=== PATIENT | male | born 1955 | race Caucasian/White ===

== ENCOUNTER 2018-11-29 15:40 | Observation (INO) | payer OTHER ==
[~2018-11-29] VITALS: Ht 182.9 cm; Wt 100.7 kg
[2018-11-29] MEDS ORDERED: TESTOSTERO200 MG/1 M (16:04)
[2018-11-29] MEDS ORDERED: ENOXAPARIN SODIUM INJ 100 MG/ML SYR SC ONE (16:14)
[2018-11-29] MEDS ORDERED: FAMOTIDINE 20 MG/2 ML VIAL IV STA (16:14)
[2018-11-29] MEDS ORDERED: ASPIRIN 81 MG CHEW TAB PO ONE (16:14)
[2018-11-29] MEDS ORDERED: METOPROLOL TARTRATE 50 MG TAB PO ONE (16:14)
[2018-11-29] MEDS ORDERED: METOPROLOL TARTRATE INJ 1 MG/ML VIAL IV ONE (16:15)
[2018-11-29] MEDS ORDERED: ONDANSETRON HCL INJ 2MG/ML 2ML 2 MG/ML VIAL IV PRN (16:30)
[2018-11-29] MEDS ORDERED: MORPHINE SULFATE 2 MG/ML SYR 1ML IV PRN (16:30)
[2018-11-29] MEDS ORDERED: METOPROLOL TARTRATE 25 MG TAB PO SCH (16:30)
[2018-11-29 16:31] LABS: BASOPHILS # (AUTO) 0.1 (0.0-0.1); EOSINOPHILS # (AUTO) 0.2 (0.0-0.4); EOSINOPHILS % 2.9 % (0.0-6.0); HEMATOCRIT 51.3 % (38.2-49.6); HEMOGLOBIN 17.8 g/dL (14.0-18.0); LYMPHOCYTES # (AUTO) 2.2 (1.0-3.2); LYMPHOCYTES % 28.5 % (18.0-39.1); MEAN CORPUSCULAR HGB CONC 34.7 g/dL (31-35); MEAN CORPUSCULAR VOLUME 92.1 fL (81-99); MONOCYTES # (AUTO) 0.6 (0.2-0.8); MONOCYTES % 8.2 % (4.4-11.3); NEUTROPHILS # (AUTO) 4.5 (2.1-6.9); NEUTROPHILS % 58.9 % (38.7-80.0); PLATELET COUNT 159 x10e3/uL (140-360); RED BLOOD COUNT 5.57 x10e6/uL (4.3-5.7); RED CELL DISTRIBUTION WIDTH 12.7 % (11.7-14.4)
[2018-11-29 16:37] LABS: BILIRUBIN,URINE NEGATIVE (NEGATIVE); CLARITY,URINE SL CLOUDY (CLEAR); COLOR,URINE YELLOW (YELLOW); KETONES,URINE TRACE (NEGATIVE); LEUKOCYTE ESTERASE ,URINE NEGATIVE (NEGATIVE); NITRITE,URINE NEGATIVE (NEGATIVE); PROTEIN,URINE DIPSTICK NEGATIVE (NEGATIVE); URINE UROBILINOGEN 0.2 mg/dL (0.2 - 1)
[2018-11-29 16:42] LABS: INR 0.92; PROTHROMBIN TIME 12.8 seconds (11.9-14.5)
[2018-11-29 16:43] LABS: PARTIAL THROMBOPLASTIN TIME 30.3 seconds (23.8-35.5)
[2018-11-29 16:50] LABS: ALANINE AMINOTRANSFERASE 36 IU/L (0-55); ALBUMIN 4.3 g/dL (3.5-5.0); ALBUMIN/GLOBULIN RATIO 1.5 (0.8-2.0); ALKALINE PHOSPHATASE 68 IU/L (40-150); BLOOD UREA NITROGEN 14 mg/dL (7-26); BUN/CREATININE RATIO 16 (6-25); CALCIUM 9.6 mg/dL (8.4-10.2); CARBON DIOXIDE 23 mmol/L (22-29); CHLORIDE 103 mmol/L (98-107); CREATINE KINASE 147 IU/L (30-200); CREATININE, SERUM 0.89 mg/dL (0.72-1.25); EST GLOMERULAR FILTRATION RATE > 60 ML/MIN (60-); GLUCOSE 89 mg/dL (74-118); SODIUM 139 mmol/L (136-145)
[2018-11-29 16:57] LABS: BACTERIA,URINE FEW /HPF; MUCUS,URINE MANY (RARE)
[2018-11-29 17:07] LABS: MAGNESIUM 2.1 MG/DL (1.3-2.1)
[2018-11-29 17:27] LABS: THYROID STIMULATING HORMONE 0.43 uIU/mL (0.350-4.940)
--- NOTE | 2018-11-29 17:28 | Diagnostic Imaging Report ---
EXAMINATION: CHEST SINGLE (NOT PORTABLE) INDICATION: ^chest pain ^[id number] ^1711 COMPARISON: None FINDINGS: AP view TUBES and LINES: None. LUNGS: Lungs are well inflated. Lungs are clear. There is no evidence of pneumonia or pulmonary edema. PLEURA: No pleural effusion or pneumothorax. HEART AND MEDIASTINUM: The cardiac silhouette is prominent. BONES AND SOFT TISSUES: No acute osseous lesion. Soft tissues are unremarkable. UPPER ABDOMEN: No free air under the diaphragm. IMPRESSION: Prominent cardiac silhouette without pulmonary decompensation. Signed by: Dr. Sheridan Shoemaker M.D. on 11/29/2018 5:25 PM
--- NOTE | 2018-11-29 20:50 | History and Physical ---
CHIEF COMPLAINT: "I've had chest pain off and on for the last couple of weeks." HISTORY OF PRESENT ILLNESS: A 63-year-old white man, who presents to [facility] with 2-week history of intermittent retrosternal chest pressure that at times radiates to his interscapular area. He is currently chest pain free. A 12-lead EKG done in the emergency room revealed atrial fibrillation with rapid ventricular rate. The patient was given one dose of intravenous metoprolol that did slow his heart rate down. The patient's initial cardiac enzymes were negative. The patient's B type natriuretic peptide level was slightly elevated with level 162. The patient's BUN and creatinine are 14 and 0.89 respectively. The patient's TSH level is 0.430. The patient states he does drink alcohol socially. He is also on testosterone replacement therapy for hypogonadism. He has had a chest x-ray done in the emergency room revealed prominent cardiac silhouette without pulmonary decompensation. REVIEW OF SYSTEMS: GENERAL: Weight is stable. No fever or chills. HEENT: No headaches. No vision changes. CARDIOVASCULAR/RESPIRATORY: Slight shortness of breath with intermittent chest tightness over the last two weeks that could have been currently at rest. No cough. GI: No nausea, associated with chest discomfort. : No UTI symptoms. NEUROMUSCULAR: No limb weakness or numbness. ALLERGIES: NO KNOWN DRUG ALLERGIES. PAST SURGICAL HISTORY: Right total knee replacement. FAMILY HISTORY: No family history of coronary artery disease or atrial fibrillation. SOCIAL HISTORY: He is . He lives with his . He is employed as a construction driver. Does not smoke tobacco, but drinks alcohol socially in the form of beer or wine. HOME MEDICATIONS: Testosterone cypionate 200 mg intramuscular every two weeks. PHYSICAL EXAMINATION: GENERAL: He is awake, alert, and fully oriented. He has a flat affect. He appears to be slightly annoyed that he must stay in the hospital tonight. Did not appear to be in any distress. He is pleasant, cooperative with exam. VITAL SIGNS: Height 6 feet 0 inches, weight is 230 pounds, BMI 31. Blood pressure is 134/84, pulse was 115 when he arrived, currently it is 96, irregular, temperature 97.9, oxygen saturation 95% on room air, respiratory rate 16. INTEGUMENT: Skin is warm and dry. No pallor, jaundice, or diaphoresis. HEENT: The anicteric sclerae. Moist mucous membranes. NECK: Supple. No evidence of jugular venous distention. CARDIOVASCULAR: Distant heart sounds. Tachycardic heart rate with irregular rhythm. LUNGS: No rales. No rhonchi or wheezes. EXTREMITIES: No edema or deformity. NEUROLOGIC: Intact. DIAGNOSES: 1. Atrial fibrillation with rapid ventricular rate. 2. Angina. 3. Hypertensive heart disease. 4. Chronic diastolic congestive heart failure. 5. Hypogonadism (currently on testosterone replacement therapy). PLAN: 1. We will stop testosterone replacement therapy. 2. Rule out myocardial infarction. 3. Consult Cardiology. 4. Order 2D echocardiogram. 5. The patient may benefit from a stress test or left heart catheterization tomorrow morning. 6. We will check lipid profile. 7. We will start enoxaparin since the patient is in atrial fibrillation. 8. Recommend the patient not binge alcohol drink since this can place him at risk for atrial fibrillation. I spent 40 minutes in care of this patient. MD NOE French/MONICA /[id number]
[2018-11-29] MEDS ORDERED: SIMVASTATIN 20 MG TAB PO SCH (21:00)
[2018-11-29] MEDS: FAMOTIDINE 20 MG/2 ML VIAL IV SCH (21:05)
[2018-11-29] MEDS: METOPROLOL TARTRATE 50 MG TAB PO SCH (21:06)
[2018-11-29 21:30] VITALS: BP 95/55
--- NOTE | 2018-11-29 21:30 | NUR ---
patient is a new admit that arrived via stretcher. patient is awake and talking. patient has been transferred into the bed. bed is in the lowest position and call light is within reach will continue to monitor patient.
[2018-11-29 21:41] VITALS: BP 95/55
[2018-11-30 01:00] LABS: CREATINE KINASE 98 IU/L (30-200)
[2018-11-30 04:00] VITALS: BP 112/69
[2018-11-30] MEDS: FAMOTIDINE 20 MG/2 ML VIAL IV SCH ×2 (04:20→17:17)
[2018-11-30] MEDS: ENOXAPARIN SODIUM INJ 100 MG/ML SYR SC SCH ×2 (04:20→17:17)
[2018-11-30] MEDS: METOPROLOL TARTRATE 50 MG TAB PO SCH ×2 (04:20→17:00)
[2018-11-30 06:10] LABS: BASOPHILS # (AUTO) 0.1 (0.0-0.1); BASOPHILS % 1.3 % (0.0-1.0); EOSINOPHILS # (AUTO) 0.2 (0.0-0.4); EOSINOPHILS % 4.4 % (0.0-6.0); HEMATOCRIT 47.6 % (38.2-49.6); HEMOGLOBIN 16.2 g/dL (14.0-18.0); LYMPHOCYTES # (AUTO) 2.1 (1.0-3.2); LYMPHOCYTES % 40.5 % (18.0-39.1); MEAN CORPUSCULAR HEMOGLOBIN 31.8 pg (28-32); MEAN CORPUSCULAR VOLUME 93.5 fL (81-99); MONOCYTES # (AUTO) 0.7 (0.2-0.8); MONOCYTES % 12.7 % (4.4-11.3); NEUTROPHILS # (AUTO) 2.2 (2.1-6.9); NEUTROPHILS % 40.7 % (38.7-80.0); PLATELET COUNT 210 x10e3/uL (140-360); RED BLOOD COUNT 5.09 x10e6/uL (4.3-5.7); RED CELL DISTRIBUTION WIDTH 12.8 % (11.7-14.4)
[2018-11-30 06:50] LABS: ALANINE AMINOTRANSFERASE 32 IU/L (0-55); ALBUMIN 3.7 g/dL (3.5-5.0); ALBUMIN/GLOBULIN RATIO 1.5 (0.8-2.0); ALKALINE PHOSPHATASE 59 IU/L (40-150); BLOOD UREA NITROGEN 22 mg/dL (7-26); BUN/CREATININE RATIO 23 (6-25); CALCIUM 9.2 mg/dL (8.4-10.2); CARBON DIOXIDE 26 mmol/L (22-29); CHLORIDE 105 mmol/L (98-107); CHOL/HDL RATIO 4.4 (3.9-4.7); CHOLESTEROL 166 MD/DL (0-199); CREATININE, SERUM 0.96 mg/dL (0.72-1.25); EST GLOMERULAR FILTRATION RATE > 60 ML/MIN (60-); GLUCOSE 96 mg/dL (74-118); HDL CHOLESTEROL 38 MG/DL (40-60); LDL CHOLESTEROL 113 MG/DL (60-130); MAGNESIUM 2.1 MG/DL (1.3-2.1); PHOSPHORUS 3.5 MG/DL (2.3-4.7); SODIUM 140 mmol/L (136-145); TRIGLYCERIDES 73 MG/DL (0-149)
--- NOTE | 2018-11-30 06:58 | NUR ---
report given to day nurse. patient is resting comfortably in bed, bed is in lowest position and call garcia is within reach
--- NOTE | 2018-11-30 07:09 | NUR ---
Received patient awake alert, Respiration even and unlabored without SOB. call light in reach.
[2018-11-30 07:12] LABS: CREATINE KINASE MB 1.2 ng/mL (0-5.0)
[2018-11-30 07:31] VITALS: BP 113/68
[2018-11-30 08:48] VITALS: BP 113/68
[2018-11-30] MEDS ORDERED: ASPIRIN 81 MG ENTERIC COATED PO SCH (09:00)
[2018-11-30] MEDS ORDERED: ACETAMINOPHEN 325 MG TAB PO PRN (09:30)
--- NOTE | 2018-11-30 12:30 | Consultation ---
DATE OF CONSULTATION: 11/30/2018 Cardiology Consultation REQUESTING PHYSICIAN: Daniel Vale MD REASON FOR CONSULTATION: Chest pain and atrial fibrillation. HISTORY OF PRESENT ILLNESS: This is a 63-year-old male without significant past medical history, who presents with complaints of chest pain and atrial fibrillation. The patient reports chest pain for the last couple of weeks. The pain is intermittent with radiation to his back and abdomen. He states it is 2 to 3/10 in severity and is associated with shortness of breath. There was no nausea or diaphoresis. He presented to his primary care physician and was sent to [facility] where he was evaluated by Dr. Remy Hurtado yesterday. He was found to be in atrial fibrillation with rapid ventricular response and subsequently sent to the ER for further care. The patient was initially planned for NEERU cardioversion this morning, however, converted back to normal sinus rhythm overnight. He is currently chest pain free. REVIEW OF SYSTEMS: Negative except as per HPI. PAST MEDICAL HISTORY: Denies. PAST SURGICAL HISTORY: Right knee replacement. ALLERGIES: NO KNOWN DRUG ALLERGIES. MEDICATIONS: Please see medication list. SOCIAL HISTORY: He quit smoking six months ago. Previously smoked one pack a week for 20 years. Drinks alcohol occasionally. No illicit drugs. FAMILY HISTORY: Denies. PHYSICAL EXAMINATION: VITAL SIGNS: Temperature 97.3 degrees, pulse 56, respiratory rate 18, blood pressure 113/60, oxygen saturation 94% on room air. GENERAL: Awake, alert, well-developed, and well-nourished man, in no acute distress. HEENT: Normocephalic, atraumatic. Pupils equal. No scleral icterus. NECK: Supple. No thyromegaly or cervical lymphadenopathy. No carotid bruits. LUNGS: Clear to auscultation bilaterally. No wheezes or crackles. CARDIOVASCULAR: Normal rate. Regular rhythm. No murmur. Normal S1, S2. ABDOMEN: Soft and nontender. EXTREMITIES: No edema. NEUROLOGIC: Nonfocal exam. LABORATORY DATA: WBC 5.28, hemoglobin 16.2, hematocrit 47.6, platelets 210. Sodium 140, potassium 4, chloride 105, CO2 of 26, BUN 22, creatinine 0.96. Troponin 0.001. BNP 162. Cholesterol 166, LDL 113, HDL 38, triglycerides 73. IMAGING DATA: Initial EKG atrial fibrillation with rapid ventricular response. Repeat EKG this morning with sinus bradycardia, septal infarct, age undetermined. IMPRESSION: 1. Paroxysmal atrial fibrillation with rapid ventricular response, currently sinus rhythm. 2. Chest pain. 3. History of tobacco use. RECOMMENDATION: The patient has ruled out for myocardial infarction with serial cardiac biomarkers. The patient spontaneously converted back to normal sinus rhythm. Continue metoprolol for rate control. The patient's CHADS-VASc score is 0 at this time. Recommend aspirin 81 mg daily alone for CVA prophylaxis. Given risk factors, plan for nuclear stress test today. Further recommendations pending test results. Thank you for this consult. We will continue to follow. Nancy Mccloud MD ABS/MODL /[id number]
--- NOTE | 2018-11-30 13:40 | NUR ---
Visit made by the Spiritual Care Department Pastoral Visitor, Luz Benites. Pt out of room and no family at bedside. A card was left at the bedside to indicate a missed visit from a member of the Spiritual Care team and to inform the pt and family of the availability of a Labor Delivery Specialist 24 hours a day/7 days a week. A mail censor will follow up as able. CHRISTIAN EPPS Labor Delivery Specialist Spiritual Care Department O: [phone] Pager: [phone] ([phone] number calling from)
[2018-11-30 16:00] VITALS: BP 131/62
--- NOTE | 2018-11-30 16:22 | NUR ---
Patient returned from stress test at this time
[2018-11-30] MEDS ORDERED: METOPROLOL SUCC50 MG PO (18:21)
[2018-11-30] MEDS ORDERED: LIPITOR20 MG PO (18:21)
--- NOTE | 2018-11-30 18:35 | NUR ---
Removed IV at this time. Pressure dressing applied.
--- NOTE | 2018-11-30 18:42 | NUR ---
Patient discharged from facility to home. Patient assisted out via staff Reviewed discharge paperwork, follow up appts and RX's given.
--- NOTE | 2018-11-30 19:02 | NUR ---
Patiet is to discharge to home. Transported via wheelchair to private vehicle with personal belongings to .
--- NOTE | 2018-12-01 13:08 | NUR ---
Dictated DC summary: [id number]
--- NOTE | 2018-12-01 13:36 | Discharge Summary ---
ADMIT DIAGNOSES: 1. Atrial fibrillation with rapid ventricular rate. 2. Angina. 3. Hypertensive heart disease. 4. Chronic diastolic congestive heart failure. 5. Hypogonadism (currently on testosterone replacement therapy). DISCHARGE DIAGNOSES: 1. Spontaneous conversion of atrial fibrillation to normal sinus rhythm. 2. Angina, resolved. 3. Hypertensive heart disease. 4. Chronic diastolic congestive heart failure. HOSPITAL COURSE: This is a 63-year-old white man, who was initially admitted to [facility] with diagnosis of angina and atrial fibrillation with rapid ventricular rate. The patient spontaneously converted to normal sinus rhythm during this hospitalization. The patient underwent serial cardiac enzymes as well as electrocardiograms, which did not reveal any evidence of acute myocardial ischemia or infarction. During this hospitalization, he was found to have LDL cholesterol 113 mg/dL. During this hospitalization, we discovered that he is using testosterone replacement therapy in the form of injectable testosterone cypionate. The patient instructed to stop testosterone replacement therapy since this increases risk of cardiovascular events. The patient underwent a nuclear stress test during this hospitalization, which revealed some possible apical scarring that was thought to be perhaps artifact. His brief hospitalization is unremarkable. CONDITION ON DISCHARGE: Stable. DISCHARGE MEDICATIONS: 1. Atorvastatin 20 mg at bedtime. 2. Aspirin 81 mg daily. 3. Metoprolol succinate 50 mg daily. FOLLOWUP INSTRUCTIONS: The patient instructed to stop taking testosterone cypionate as previously stated. The patient will follow up with his primary care physician namely Dr. Hurtado within 7 to 10 days and with his technology applications teacher, Dr. Remy Hurtado within two weeks. MD NOE French/MONICA /[id number] cc: DO Remy Chaudhary DO
--- NOTE | 2018-12-08 10:03 | Myoview Stress Test ---
DATE OF STUDY: 11/30/2018 09:20:00 Stress Test - Treadmill ONLY PROCEDURE: Rest stress single isotope SPECT imaging with pharmacologic stress and gated SPECT imaging. INDICATION: Chest pain. PROCEDURE IN DETAIL: The patient performed treadmill exercise using a Gomez protocol, exercising for 9 minutes 57 seconds to stage IV, completing estimated workload of 12.8 metabolic equivalents. The test was terminated due to fatigue. The heart rate was 61 beats per minute at rest, increased to 115 beats per minute at peak exercise, which is 73% of the maximum predicted heart rate. The resting blood pressure was 94/66 mmHg, increased to 133/67 mmHg, which is a normal response. The patient did not develop any symptoms during the procedure. The resting electrocardiogram demonstrated normal sinus rhythm. There were no ST-segment changes suggestive of myocardial ischemia. Occasional PVCs were noted during recovery. Due to inability to reach target heart rate, the patient was converted to pharmacologic stress. Pharmacologic stress testing was performed with regadenoson per protocol. The heart rate was 71 beats per minute at rest, increased to 89 beats per minute during the regadenoson infusion. The resting blood pressure was 121/52 mmHg and increased to 131/60 mmHg, which is a normal response. The resting electrocardiogram demonstrated normal sinus rhythm. There were no ST-segment changes suggestive of myocardial ischemia. Myocardial perfusion imaging was performed at rest following the injection of 11 mCi of tetrofosmin. At peak pharmacologic effect, the patient was injected with 33 mCi of tetrofosmin. Gated post-stress tomographic imaging was performed. FINDINGS: The overall quality of study is fair. Left ventricular cavity is noted to be normal size on the rest and stress studies. SPECT images demonstrate a small mild perfusion defect in the distal inferior wall on rest and stress. Gated SPECT imaging reveals normal myocardial thickening and wall motion. Left ventricular ejection fraction was calculated at 54%. IMPRESSION: Myocardial perfusion imaging is abnormal. There is a small nontransmural scar in the distal inferior wall. Overall, left ventricular systolic function was normal without regional wall motion abnormalities. Nancy Mccloud MD ABS/MODL /[id number]
== END 2018-11-30 19:02 | disposition home or self-care (01) ==
LOC: ER 15:40 → ERHOLD 16:19 → INTOOBSV 16:19 → MED/SURG 21:21
PROVIDERS: ADMIT Internal Medicine; ATTEND Internal Medicine
DX: I48.0 Paroxysmal atrial fibrillation (principal); R07.9 Chest pain, unspecified; I20.9 Angina pectoris, unspecified; I11.0 Hypertensive heart disease with heart failure; I50.32 Chronic diastolic (congestive) heart failure; Z96.651 Presence of right artificial knee joint; Z82.49 Family history of ischemic heart disease and other diseases of the circulatory system; E29.1 Testicular hypofunction; Z87.891 Personal history of nicotine dependence; Z79.82 Long term (current) use of aspirin; Z79.890 Hormone replacement therapy
CPT/HCPCS: 36415; 71045; 78452; 80053 ×2; 80061; 81001; 82550 ×2; 82553 ×2; 83735 ×2; 83880; 84100; 84443; 84484 ×2; 85025 ×2; 85610; 85730; 87086; 93005 ×2; 93017; 93306; 99284; A9502; G0378 ×2; J1650 ×2

== ENCOUNTER → 2018-12-31 | Outpatient (CLI) | payer OTHER ==
[~2018-12-31] MED LIST: IOPAMIDOL 370 MG/ML 200 ML INFUS..BTL INJ ONE; LIPITOR20 MG PO; METOPROLOL SUCC50 MG PO; NITROGLYCERIN 0.4 MG SUBL ONE; SODIUM CHLORIDE 0.9% 100 ML 100 ML ONE; TESTOSTERO200 MG/1 M
[2018-12-31 08:42] LABS: BLOOD UREA NITROGEN 14 mg/dL (7-26); BUN/CREATININE RATIO 15 (6-25); CREATININE, SERUM 0.95 mg/dL (0.72-1.25); EST GLOMERULAR FILTRATION RATE > 60 ML/MIN (60-)
--- NOTE | 2018-12-31 13:48 | Diagnostic Imaging Report ---
EXAM: CALCIUM SCORE AND CORONARY CTA INDICATION: ^[id number] ^[id number] ^CHEST PAIN/ABN STRESS TEST COMPARISON: Nuclear medicine stress test 11/30/2018 and chest radiograph 11/29/2018 TECHNIQUE: Multi-detector CT technology was employed (64 MDCT iVideosongs). Minimal slice thickness with retrospective gating was performed following the intravenous administration of contrast material. The patient was premedicated with 0.4 mg sublingual nitroglycerin for coronary dilation. No need to administer beta blockers due to low heart rate during the exam (58-60 bpm). IV CONTRAST: 150 mL of Omnipaque 350 ORAL CONTRAST: None COMPLICATIONS: None RADIATION DOSE: Total DLP: 1591 mGy*cm Estimated effective dose: (DLP x 0.015 x size factor) mSv CTDIvol has been reviewed. It is below the limits set by the Radiation Protocol Committee (RPC). For optimization of anatomic evaluation, multiplanar reconstruction, maximum intensity projections, and advanced 3-D off-line postprocessing were performed on a dedicated stand-alone workstation under the direct supervision of the interpreting physician. QUALITY: Excellent FINDINGS: CALCIUM SCORE: The observed Agatston Calcium Score of 184 is at percentile between 50 and 75% for subjects of the same age and gender who are free of clinical cardiovascular disease and treated diabetes. The Agatston score for each vessel is as follows: LM: 0 LAD: 106 LCx: 0 RCA: 77.5 DISTRIBUTION OF THE CALCIFIED PLAQUES: Moderate scattered calcified plaques throughout LAD and RCA. CORONARY ANATOMY: There is normal origin of the coronary arteries. Left Main Coronary Artery: The left main, which has a most posterior origin from the left coronary cusp, is normal sized vessel that bifurcates into the LAD and circumflex. There is no evidence of atherosclerotic changes or stenotic disease. Left Anterior Descending Coronary Artery: The LAD is a normal size vessel that wraps around the apex. It gives rise to 2 acute diagonal branches. Few scattered calcified and noncalcified plaques throughout the LAD, worse in the mid segment, resulting in mild stenosis (25-49%). Left Circumflex Coronary Artery: The LCX is a normal size vessel, which is non-dominant. It gives rise to 1 large obtuse marginal branch. There is no evidence of atherosclerotic changes or stenotic disease. Right Coronary Artery: The RCA is a normal size vessel, which is dominant. It gives rise to a conus branch, AV micheal branch, and 2 acute marginal branches. In its distal segment it bifurcates into the PDA and PV branch. Mild scattered calcified and noncalcified plaques in the mid segment resulting in minimal stenosis (1-24%). Otherwise, no evidence of atherosclerotic changes or stenotic disease. CARDIAC MORPHOLOGY AND FUNCTION: The right and left atria and ventricles are morphologically normal. There is normal resting global left ventricular systolic function. LVEF: 58.2%, LV end diastolic volume: 179.4 cc LV end systolic volume: 74.9 cc LV stroke volume: 104.5 cc LIMITED CHEST: Limited views of the visualized chest show no abnormality within chest wall and mediastinum. No mediastinal lymphadenopathy. Mild reticulonodular scarring in the lingula. The visualized portions of the ascending and descending thoracic aorta are of normal size. Small hiatal hernia. LIMITED ABDOMEN: Limited images of the upper abdomen reveal no abnormalities of the visualized organs. BONES: No acute osseous abnormalities. IMPRESSION: 1. Total Agatston Calcium Score: 184 that corresponds to percentile between 50 and 75%, representing moderate plaque burden. 2. Normal coronary anatomy. 3. Mild stenosis of the mid LAD due to a mixed plaque resulting in 25-49%. Minimal stenosis of the mid RCA due to a mixed plaque (1-25%). Otherwise, no evidence of atherosclerotic changes or stenotic disease in the remaining coronary arteries. CAD-JEFFERY 2 Reference: [email or web address] 4. Small hiatal hernia. Signed by: Dr. Sheridan Shoemaker M.D. on 12/31/2018 1:44 PM
== END ==
LOC: CT 06:48
PROVIDERS: ATTEND Internal Medicine Cardiovascular Disease
DX: R07.9 Chest pain, unspecified (principal); R94.39 Abnormal result of other cardiovascular function study
CPT/HCPCS: 36415; 75574; 82565; 84520; Q9967

== ENCOUNTER → 2024-06-25 | Day surgery (SDC) | payer BC ==
[2024-06-20 11:27] LABS: BASOPHILS # (AUTO) 0.1 (0.0-0.1); BASOPHILS % 1.1 % (0.0-1.0); EOSINOPHILS # (AUTO) 0.2 (0.0-0.4); EOSINOPHILS % 3.4 % (0.0-6.0); HEMATOCRIT 42.5 % (38.2-49.6); HEMOGLOBIN 14.4 g/dL (14.0-18.0); LYMPHOCYTES # (AUTO) 2.3 (1.0-3.2); LYMPHOCYTES % 43.2 % (18.0-39.1); MEAN CORPUSCULAR HEMOGLOBIN 31.9 pg (28-32); MEAN CORPUSCULAR HGB CONC 33.9 g/dL (31-35); MEAN CORPUSCULAR VOLUME 94.2 fL (81-99); MONOCYTES # (AUTO) 0.6 (0.2-0.8); NEUTROPHILS # (AUTO) 2.2 (2.1-6.9); NEUTROPHILS % 41.1 % (38.7-80.0); PLATELET COUNT 229 x10e3/uL (140-360); RED BLOOD COUNT 4.51 x10e6/uL (4.3-5.7); RED CELL DISTRIBUTION WIDTH 12.1 % (11.7-14.4); WHITE BLOOD COUNT 5.28 x10e3/uL (4.8-10.8)
[~2024-06-25] MED LIST changes: +ASPIR 8181 MG PO; +FENTANYL CITRATE/PF 100MCG/2 ML INJ ONE; +GLUCAGON FOR INJ 1 MG VIAL ONE; +GLYCOPYRROLATE INJ 0.2 MG/ML VIAL ONE; +HYOSCYAMINE SULFATE 0.5 MG/ML INJ ONE; -IOPAMIDOL 370 MG/ML 200 ML INFUS..BTL INJ ONE; +KETAMINE HCL INJ 50 MG/ML 10 ML VIAL ONE; +LIDOCAINE HCL 2% LOCAL INJ 5 ML SDV VIAL INJ ONE; -NITROGLYCERIN 0.4 MG SUBL ONE; +ONDANSETRON HCL INJ 2MG/ML 2ML 2 MG/ML VIAL ONE; +PRAVASTATIN SOD40 MG PEG; +PREDNISONE50 MG PO; +PROPOFOL IV EMULSION 10 MG/ML 20 ML VIAL ONE; +PROPOFOL IV EMULSION 50 ML IV ONE; -SODIUM CHLORIDE 0.9% 100 ML 100 ML ONE
[2024-06-25] MEDS: LACTATED RINGER'S 1,000 ML ONE (07:46)
[2024-06-25 09:14] VITALS: TEMP 97.6
[2024-06-25 09:35] VITALS: BP 116/73; PULSE 76; RESP 18; O2SAT 99
== END | disposition home or self-care (01) ==
LOC: OR 06:48
PROVIDERS: ATTEND Internal Medicine Gastroenterology
DX: Z12.11 Encounter for screening for malignant neoplasm of colon (principal); D12.2 Benign neoplasm of ascending colon; D12.4 Benign neoplasm of descending colon; K64.8 Other hemorrhoids; G47.33 Obstructive sleep apnea (adult) (pediatric); I48.91 Unspecified atrial fibrillation; E66.9 Obesity, unspecified; Z88.0 Allergy status to penicillin; Z01.810 Encounter for preprocedural cardiovascular examination; Z01.812 Encounter for preprocedural laboratory examination; Z68.32 Body mass index [BMI] 32.0-32.9, adult; Z80.0 Family history of malignant neoplasm of digestive organs
CPT/HCPCS: 36415; 45385; 85025; 93005; J1610; J1980; J2003; J2405; J2704 ×2; J3010; J7121; 44391

== ENCOUNTER → 2024-07-06 | Outpatient (REF) | payer BC ==
[~2024-07-06] MED LIST changes: -FENTANYL CITRATE/PF 100MCG/2 ML INJ ONE; -GLUCAGON FOR INJ 1 MG VIAL ONE; -GLYCOPYRROLATE INJ 0.2 MG/ML VIAL ONE; -HYOSCYAMINE SULFATE 0.5 MG/ML INJ ONE; +IOPAMIDOL 370 MG/ML 100 ML INFUS..BTL INJ ONE; -KETAMINE HCL INJ 50 MG/ML 10 ML VIAL ONE; -LIDOCAINE HCL 2% LOCAL INJ 5 ML SDV VIAL INJ ONE; -ONDANSETRON HCL INJ 2MG/ML 2ML 2 MG/ML VIAL ONE; -PROPOFOL IV EMULSION 10 MG/ML 20 ML VIAL ONE; -PROPOFOL IV EMULSION 50 ML IV ONE
[2024-07-06 16:36] LABS: CREATININE, SERUM 1.07 mg/dL (0.72-1.25)
== END ==
LOC: CT 15:50
PROVIDERS: ATTEND Nurse Practitioner
DX: R19.00 Intra-abdominal and pelvic swelling, mass and lump, unspecified site (principal)
CPT/HCPCS: 36415; 74177; 82565; 84520; Q9967